=== PATIENT | female | born 2000 ===

== ENCOUNTER 2019-06-11 09:23 | Emergency (ER) | payer MEDICAID ==
--- NOTE | 2019-06-11 10:36 | Emergency Department Report ---
Chief Complaint: Urogenital-Female Stated Complaint: CHECK UP Time Seen by Provider: 06/11/19 09:50 - HPI History of Present Illness: This is a 19-year-old female nontoxic, well nourished in appearance, no acute signs of distress presents to the ED STD check up and test. Patient denies any vaginal pain or swelling. Patient denies any vaginal ulcers or lesions. Patient stated she is asymptomatic and denies any symptoms or pain. Patient just wants to be tested. Deneis any abdominal or pelvic pain. Denies any vaginal discharge. Patient denies any nausea, vomiting, chest pain, shortness of breathe, fever, chills, headache, back pain, numbness, tingling, stiff neck. Patient denies any urinary symptoms. Patient denies any allergies or PMH. - Exam Physical Exam: no abdominal pain. no urinary symptoms. no back pain. no vaginal discharge. MSE screening note: Focused history and physical exam performed. Due to findings the following was ordered: ED Medical Decision Making - Medical Decision Making This is a 19-year-old female that presents with nonmedical emergency. Patient is stable and was examined by me. Patient is asymptomatic and denies any symptoms. Patient states he just wants to be tested for STD. I will refer the patient [facility]. At time of discharge, the patient does not seem toxic or ill in appearance. No acute signs of distress noted. Patient agrees to discharge treatment plan of care. No further questions noted by the patient. ED Disposition for MSE Clinical Impression: Possible exposure to STD Disposition: Z- MED SCREENING EXAM-LEFT Is pt being admited?: No Does the pt Need Aspirin: No Condition: Stable Instructions: Safe Sex (ED) Additional Instructions: Follow-up with a primary care doctor, [facility], or [facility] in 3-5 days or if symptoms worsen and continue return to emergency room as soon as possible. Referrals: PRIMARY MD CARLEEN [Referring] - 3-5 Days MARIA T BATISTA MD [Staff Physician] - 3-5 Days [facility] [Outside] - 3-5 Days [facility] [Outside] - 3-5 Days
== END 2019-06-11 10:48 | disposition left against medical advice (07) ==
LOC: ED 09:23
DX: Z11.3 Encounter for screening for infections with a predominantly sexual mode of transmission (principal); Z32.00 Encounter for pregnancy test, result unknown
CPT/HCPCS: 99281

== ENCOUNTER 2019-06-14 11:32 | Emergency (ER) | payer MEDICAID ==
--- NOTE | 2019-06-14 11:54 | Emergency Department Report ---
Blank Doc - Documentation Documentation: This is a 19-year-old female that presents with vaginal discharge and pelvic p ain. This initial assessment/diagnostic orders/clinical plan/treatment(s) is/are subject to change based on patient's health status, clinical progression and re- assessment by fellow clinical providers in the ED. Further treatment and workup at subsequent clinical providers discretion. Patient/guardians urged not to elope from the ED as their condition may be serious if not clinically assessed a nd managed. Initial orders include: 1- Patient sent to [facility] for further evaluation and treatment 2- UA 3- wet prep/GC <TASNEEM WALTON - Last Filed: 06/14/19 11:53> - Documentation Documentation: A physician and/or other qualified medical personnel has recommended that the patient receive further examination and/or treatment beyond their Medical Screening Exam. The risks and benefits were explained. The patient was informed of their right to emergency care. Patient left before final disposition of their medical condition. This note has been generated by me, Dr. Hema Olvera III, MD, the [employer] for the emergency department. I have not seen this patient personally. <HEMA OLVERA - Last Filed: 06/15/19 19:16>
[2019-06-14 11:58] VITALS: BP 113/65
[2019-06-14 15:43] LABS: Bilirubin,Urine NEG (Negative); Blood,Urine NEG (Negative); Color,Urine Yellow (Yellow); Mucus,Urine FEW /HPF; Protein,Urine <15 mg/dL mg/dL (Negative); Urobilinogen,Urine < 2.0 mg/dL (<2.0); WBC,Urine < 1.0 /HPF (0.0-6.0)
[2019-06-14 16:19] LABS: HCG Qualitative,Urine Negative (Negative)
== END 2019-06-14 12:10 | disposition left against medical advice (07) ==
LOC: ED 11:32
DX: N89.8 Other specified noninflammatory disorders of vagina (principal); Z53.21 Procedure and treatment not carried out due to patient leaving prior to being seen by health care provider
CPT/HCPCS: 81001; 81025